=== PATIENT | female | born 1985 | race Caucasian/White ===

== ENCOUNTER 2020-05-08 01:05 | Day surgery (SDC) | payer OTHER, SELFPAY ==
[2020-05-04 08:32] VITALS: BMI 24.4
[2020-05-08] VITALS (8 sets, daily range): BP systolic 101–145; BP diastolic 77–90; PULSE 76–97; RESP 12–20; TEMP 36–36.6; O2SAT 100
[2020-05-08] MEDS: LACTATED RINGERS 1,000 ML 30 ML IV CONT ×2 (10:03→13:28)
--- NOTE | 2020-05-08 10:05 | WPDANESEPPF ---
Anes - Initial Pre Proc Eval Procedure: Operation Date: 05/08/20 11:30 Proposed Procedures p Bilateral Breast Augmentation - Tiburcio Leigh MD Date/Time: 05/08/20 10:05 Surgeon: Tiburcio Leigh MD Pre Op Diagnosis: Micromastia Patient Data Age: 34 Gender: F Height: 5 ft 9 in Weight: 75 kg Allergies Allergy/AdvReac Type Severity Reaction Status Date / Time No Known Allergies Allergy Unverified 05/04/20 08:34 Home Medications Medication Instructions Recorded Confirmed Type docusate sodium 100 mg capsule 100 mg PO DAILY #14 cap 04/22/20 05/04/20 Rx ondansetron HCl 4 mg tablet 4 mg PO Q8H #28 tablet 04/22/20 05/04/20 Rx carisoprodol 350 mg tablet 350 mg PO TID PRN #21 tablet 04/27/20 05/04/20 Rx oxycodone-acetaminophen 5 mg-325 1 tablet PO Q6H PRN #15 tablet 04/27/20 05/04/20 Rx mg tablet Patient hx anesthesia problems: none Family hx anesthesia problems: none PMFSH Past Medical History Medical History (Updated 05/08/20 @ 10:05 by Stas Baumann MD) GERD (gastroesophageal reflux disease) Surgical History Surgical History History of cholecystectomy History of knee surgery Social History Social History Smoking status: Never smoker Alcohol intake: current Substance use: never Living arrangements: with family Gender identity (if verbalized by the patient): Female Spiritual care concerns: No Anes - Eval Final PreProcedure Day of Procedure 05/08/20 10:05 Patient weight: normal Heart: regular rate and rhythm Lungs: clear to auscultation Airway: Mallampati scale class II Neurological: alert and oriented Last oral intake: >/= 8 hours ASA classification: II Emergent: no Anesthetic plan: proceed Anesthesia type and monitoring: general LMA and standard monitoring Informed Consent: The patient's anesthetic plan and its attendant risks and benefits were discussed with the patient/family/POA. Questions were solicited and answers provided to the satisfaction of the patient/family/POA.
--- NOTE | 2020-05-08 10:54 | SUR.PREOP ---
PT UPDATED ON SURGERY TIME DELAY. DENIES NEEDS.
--- NOTE | 2020-05-08 12:02 | WPDHPUPDATE1 ---
History and Physical Update Update Date/Time: 05/08/20 12:02 History and Physical has been reviewed, including an updated exam of the patient. There are NO changes in the patient's condition. Risks, benefits, and alternatives have been discussed and questions answered. Patient agrees to proceed with procedure.
--- NOTE | 2020-05-08 12:16 | PM.PROC ---
Procedure Note - Detailed Date of procedure: 05/08/20 Pre-op diagnosis: Micromastia Post-op diagnosis: same Procedure performed: Bilateral Augmentation Mammaplasty Description of procedure: She is here today for bilateral breast augmentation. Previously and again today the risks, benefits, alternatives were discussed in extensive detail. I wanted her to be very realistic about the risks involved as well as expectations. We discussed aftercare and what to monitor for. Made sure answered all of her questions to her satisfaction today and consent was obtained. Marked in the preoperative holding area with their verification. The patient was taken to the operating room placed supine on the operating table. Anesthesia was provided by anesthesiology. A surgical time-out was taken. We cleansed the skin and 1% lidocaine and 0.25% Marcaine with epinephrine was used anesthetize as a field block. She was prepped and draped in a standard sterile fashion. Tegaderm nipple Bird were placed. A 15 blade used to make an incision along the inframammary fold. Dissection was continued at 45 degree angle until the chest wall as identified. I incised the pectoralis major along its inferior border and completely released the inferior border leaving the medial border intact. I created a subpectoral pocket in the appropriate dimensions based on our preoperative planning for the implant. I then copiously irrigated with saline solution and verified a strict hemostasis. Next the use a triple antibiotic and Betadine containing solution to irrigate the pocket. I washed my gloves with the triple antibiotic and Betadine solution. We washed the implant immediately upon opening it with this solution and only opened it when we needed it. I used implant funnel and no-touch technique. The implant was introduced into the pocket using the funnel. Having verified positioning of the implant this was closed using 2-0 Vicryl followed by 3-0 Monocryl in a running subcuticular 4-0 Monocryl followed by tissue glue. Fluffs, Malick wrap, and surgical bra were placed. Patient was awoke and taken to PACU without difficulty. All instrument sponge counts were correct at the end of the case. Anesthesia: GLMA Surgeon: Tiburcio Leigh MD Estimated blood loss (mL): 10 Drains: No Packing: No Pathology: none sent Complications: No immediate complications Disposition: PACU Findings: Bilateral Augmentation Mammaplasty Yasmany Chasity SoftTouch 350c Right Dual Plane 2 REF SSL-350 SN [id number] Left Dual Plane 3 REF L-350 SN [id number]
[2020-05-08] MEDS: ceFAZolin 2 GM/D5W 50 ML 2 GM/50 ML BAG IVPB (12:17)
[2020-05-08] MEDS: LIDO 1%/EPINEPHRINE 1:100,000 50 ML VIAL 60 ML INFILTRATE (12:52)
[2020-05-08] MEDS: ONDANSETRON INJ 4 MG/2 ML VIAL IV PUSH (13:42)
[2020-05-08] MEDS: HYDROmorphone HCL INJ (*CRX) 1 MG/ML SYR 0.5 MG IV PUSH (13:44)
== END 2020-05-08 15:41 | disposition home or self-care (01) ==
PROVIDERS: Visit Provider Surgery Plastic and Reconstructive Surgery
PROC: (CPT 19325; principal; 2020-05-08 11:30)
DX: Z41.1 Encounter for cosmetic surgery (principal); N64.82 Hypoplasia of breast; K21.9 Gastro-esophageal reflux disease without esophagitis
CPT/HCPCS: 19325; J0690; J1100; J1170; J1580; J2250; J2405; J2704; J7120